=== PATIENT | female | born 1955 | race Asian ===

== ENCOUNTER → 2017-05-31 | Outpatient (CLI) | payer OTHER | LOC: BMCIMAGING 09:49 | PROVIDERS: ATTEND Family Medicine | DX: Z12.39 Encounter for other screening for malignant neoplasm of breast (principal); N63.11 Unspecified lump in the right breast, upper outer quadrant | CPT/HCPCS: G0204 ==

== ENCOUNTER → 2017-06-07 | Outpatient (CLI) | payer OTHER ==
[~2017-06-07] MED LIST: BUPIVACAINE 0.5% 10 ML SDV ONE; LIDOCAINE 1% 300 MG/30 ML SDV ONE; THROMBIN (BOVINE) 5,000 UNIT VIAL TP ONE
[2017-06-15 14:57] LABS: FIXED IN 10%FORM 6-72HR Yes; FIXED IN 10%FORM W/IN 1 HR Yes
== END ==
LOC: FIMAGING 07:12
PROVIDERS: ATTEND Family Medicine
PROC: 0HBT3ZX Excision of Right Breast, Percutaneous Approach, Diagnostic (ICD-10-PCS; principal; 2017-06-07)
DX: C50.411 Malignant neoplasm of upper-outer quadrant of right female breast (principal)
CPT/HCPCS: G0206

== ENCOUNTER 2017-07-06 07:10 | Day surgery (SDC) | payer OTHER ==
--- NOTE | 2017-06-30 10:41 | CPEKG ---
Heart Rate: 68 RR Interval: 882 P-R Interval: 204 QRSD Interval: 90 QT Interval: 388 QTC Interval: 413 P [place]: 43 QRS [place]: 50 T Wave [place]: 19 EKG Severity - NORMAL ECG - EKG Impression: SINUS RHYTHM Electronically Signed By: Yenifer Lee 30-Jun-2017 11:13:32
[2017-07-06] MEDS ORDERED: LR 1,000 ML IV ONE (07:28)
[2017-07-06] MEDS ORDERED: ceFAZolin 2 GM/SWFI 2 GM/20 ML SYR IVP ONE (07:33)
[2017-07-06 07:42] VITALS: PULSE 61
[2017-07-06] MEDS ORDERED: LIDOCAINE 1% 2 ML INJ ONE (07:56)
[2017-07-06] MEDS ORDERED: BUPIVACAINE/EPI 0.5% 30 ML SDV ONE (08:59)
[2017-07-06] MEDS ORDERED: LIDOCAINE 1% 300 MG/30 ML SDV ONE (08:59)
--- NOTE | 2017-07-06 09:19 | PDHPUP ---
History & Physical Update H&P update statement: This history and physical update is based on an assessment of the patient which was completed after admission or registration (within 24 hours), but prior to the surgery/procedure. H&P update: H&P reviewed & patient examined, no change in patient's condition since H&P completed
[2017-07-06] MEDS ORDERED: MIDAZOLAM 2 MG/2 ML VIAL ONE (09:30)
[2017-07-06] MEDS ORDERED: MIDAZOLAM 2 MG/2 ML VIAL IVP ONE (09:31)
--- NOTE | 2017-07-06 09:32 | PDANEPAE ---
ANE History of Present Illness breast mass excision ANE Past Medical History - Cardiovascular History Hx Hypertension: No Hx Arrhythmias: No Hx Chest Pain: No Hx Coronary Artery / Peripheral Vascular Disease: No Hx CHF / Valvular Disease: No Hx Palpitations: No - Pulmonary History Hx COPD: No Hx Asthma/Reactive Airway Disease: No Hx Recent Upper Respiratory Infection: No Hx Oxygen in Use at Home: No Hx Sleep Apnea: No Sleep Apnea Screening Result - Last Documented: Negative - Neurologic History Hx Cerebrovascular Accident: No Hx Seizures: No Hx Dementia: No - Endocrine History Hx Diabetes: No - Renal History Hx Renal Disorders: No - Liver History Hx Hepatic Disorders: No - Neurological & Psychiatric Hx Hx Neurological and Psychiatric Disorders: No - Cancer History Hx Cancer: Yes Cancer History Comment: breast ca currently - Congenital Disorder History Hx Congenital Disorders: No - GI History Hx Gastrointestinal Disorders: No - Other Health History Other Health History: lower denture - Chronic Pain History Chronic Pain: No - Surgical History Prior Surgeries: hysterectomy. back surgery ANE Review of Systems Review of Systems: - Exercise capacity METS (RN): 3 METS ANE Patient History - Allergies Allergies/Adverse Reactions: No Known Allergies Allergy (Verified 06/25/17 11:45) - Home Medications Home Medications: NK [No Known Home Meds] 12/27/14 [Last Taken Unknown] - NPO status NPO Since - Liquids (Date): 07/05/17 NPO Since - Liquids (Time): 18:00 NPO Since - Solids (Date): 07/05/17 NPO Since - Solids (Time): 18:00 - Anes Hx Anes Hx: post operative nausea and vomiting - Smoking Hx Smoking Status: Never smoked - Family Anes Hx Family Hx Anesthesia Complications: none ANE Labs/Vital Signs - Vital Signs Blood Pressure: 128/80 Heart Rate: 61 Respiratory Rate: 16 O2 Sat (%): 94 Height: 152.4 cm Weight: 61.235 kg ANE Physical Exam - Airway Mallampati Score: Class 2 Mouth exam: normal dental/mouth exam, dentures - Pulmonary Pulmonary: no respiratory distress - Cardiovascular Cardiovascular: regular rate and rhythym - ASA Status ASA Status: II ANE Anesthesia Plan Anesthesia Plan: GA with mask, MAC
[2017-07-06] MEDS ORDERED: LIDOCAINE 2% 5 ML SDV ONE (09:36)
[2017-07-06] MEDS ORDERED: PROPOFOL/EMULSION 500 MG/50 ML BOTTLE IV ONE ×2 (09:36→10:10)
[2017-07-06] MEDS ORDERED: ONDANSETRON 4 MG/2 ML VIAL ONE (09:36)
[2017-07-06] MEDS ORDERED: DEXAMETHASONE 4 MG/ML VIAL ONE (09:36)
[2017-07-06] MEDS ORDERED: fentaNYL 100 MCG/2 ML INJ ONE ×2 (09:36→11:59)
[2017-07-06] MEDS ORDERED: LR 500 ML IV PRN (11:00)
[2017-07-06] MEDS ORDERED: HYDROmorphONE/DILAUDID 1 MG/ML INJ IVP PRN (11:00)
[2017-07-06] MEDS ORDERED: HYDROCODONE/APAP 5/325 TAB PO PRN (11:00)
[2017-07-06] MEDS ORDERED: ONDANSETRON 4 MG/2 ML VIAL IVP PRN (11:00)
[2017-07-06] MEDS ORDERED: NALOXONE HCL 0.4 MG/ML INJ IVP PRN (11:00)
[2017-07-06] MEDS ORDERED: ALBUTEROL 3 ML DEYVIAL IH PRN (11:00)
--- NOTE | 2017-07-06 11:37 | POSTOPPROG ---
Post Op Note Date of Operation: 07/06/17 Surgeon: Fabian Suarez Anesthesiologist: Dr. Woodson Anesthesia: IV Sedation Pre-op Diagnosis: R breast CA Post-op Diagnosis: same Procedure: R SLN bx, R lumpectomy Inf/Abcess present in the surg proc area at time of surgery?: No EBL: Minimal
--- NOTE | 2017-07-06 11:38 | POSTANESTH ---
Post Anesthetic Evaluation Cardiovascular Status: Normal, Stable Respiratory Status: Normal, Stable Level of Consciousness/Mental Status: Can Participate in Eval Pain Control: Adequate, Prn Tx Ordered Nausea/Vomiting Control: Adequate, Prn Tx Ordered Complications Possibly Related to Anesthesia: None Noted
[2017-07-06 11:55] VITALS: TEMP 98.2
[2017-07-06] MEDS: fentaNYL 100 MCG/2 ML INJ IVP PRN ×2 (12:02→12:31)
[2017-07-06 13:50] VITALS: BP 110/73; O2SAT 91
[2017-07-06 14:14] VITALS: RESP 16
--- NOTE | 2017-07-06 20:18 | GOP ---
[f rep st] OPERATIVE REPORT DATE OF OPERATION: SURGEON: Rakesh Suarez MD ANESTHESIA: Monitored anesthetic care per . PREOPERATIVE DIAGNOSIS: Right-sided breast cancer. POSTOPERATIVE DIAGNOSIS: Right-sided breast cancer. PROCEDURE PERFORMED: 1. Right sentinel lymph node biopsy. 2. Right breast lumpectomy. FINDINGS: The patient had 2 sentinel nodes, both of which were benign. Two separate palpable masses were sent in the same specimen in the lumpectomy site. ESTIMATED BLOOD LOSS: 20 cc. INDICATIONS: This is a 61-year-old female with a history of right-sided breast cancer and palpable l ump in the upper outer quadrant. Risks and benefits of the procedure were discussed with the patient and her family. Their questions were answered, and they wished to proceed. DESCRIPTION OF PROCEDURE: Patient was in supine position. After induction of adequate IV sedation, the patient was prepped and draped in the standard surgical fashion. The sentinel node was addressed first. 1% lidocaine and 0.5% Marcaine were injected throughout the right axilla for local anesthesi a. An incision was made transversely using a #15 blade and carried down through the subcutaneous tis herman with Bovie cautery and blunt dissection. Once the axillary fat was opened, the Neoprobe was used to assess the lymph nodes therein. Two nodes appeared positive on the Neoprobe. These were dissect ed using blunt dissection. Clips were then applied to the possible lymphatic areas, and specimens we re removed separately. They were sent for frozen section. Frozen section on each of these nodes ret urned negative for malignancy. The area was thoroughly irrigated and aspirated. Good hemostasis was noted. The area was again chec ked with a Neoprobe, and no lesions were identified. The subcutaneous tissue was then approximated w ith 3-0 Vicryl in an interrupted fashion. The skin was closed with 4-0 Monocryl in a subcuticular st itch. Wound was sterilely dressed and then was segregated from the remainder of the operation. The right lumpectomy was addressed next. The area of the palpable lump was anesthetized with 1% lido storm and 0.5% Marcaine. An oblique incision was made with a #15 blade, carried down to the subcutan eous tissue with sharp and blunt dissection. Sharp dissection was then used to dissect both masses w hich were in close proximity in the right upper outer quadrant. A good margin of normal-appearing ti ssue was left around each. The site was removed and carefully marked using sutures to klaus the super ior, lateral and posterior segments. It was sent for permanent section. The area was thoroughly palp ated. No other lesions were identified. Hemostasis was achieved with cautery. It was then irrigate d and aspirated. The subcutaneous tissue was approximated 3-0 Vicryl in an interrupted fashion. Ski n was closed with 4-0 Monocryl in a subcuticular stitch. Wound was sterilely dressed, and the patien t was taken to the PACU in stable condition. COMPLICATIONS: None. DRAINS: None. /[id number]/MODL
== END 2017-07-06 14:50 | disposition home or self-care (01) ==
LOC: FSGY 07:10
PROVIDERS: ATTEND Surgery
PROC: 0HBT0ZZ Excision of Right Breast, Open Approach (ICD-10-PCS; principal; 2017-07-06 09:45)
PROC: 07B50ZX Excision of Right Axillary Lymphatic, Open Approach, Diagnostic (ICD-10-PCS; principal; 2017-07-06 09:45)
PROC: 3E0W3HZ Introduction of Radioactive Substance into Lymphatics, Percutaneous Approach (ICD-10-PCS; 2017-07-06 09:45)
DX: C50.411 Malignant neoplasm of upper-outer quadrant of right female breast (principal); D36.0 Benign neoplasm of lymph nodes; Z17.0 Estrogen receptor positive status [ER+]; Z80.3 Family history of malignant neoplasm of breast
CPT/HCPCS: 19301; 38525; 38792; 93005; A9520; J0690; J1100; J2250; J2405; J2704; J3010

== ENCOUNTER → 2017-07-09 | Outpatient (CLI) | payer OTHER | LOC: BMCIMAGING 09:52 | PROVIDERS: ATTEND Internal Medicine Hematology & Oncology | DX: Z13.820 Encounter for screening for osteoporosis (principal); M85.89 Other specified disorders of bone density and structure, multiple sites ==

== ENCOUNTER → 2018-01-05 | Outpatient (CLI) | payer OTHER | LOC: BMCIMAGING 16:08 | PROVIDERS: ATTEND Family Medicine | DX: M89.341 Hypertrophy of bone, right hand (principal) ==

== ENCOUNTER → 2018-10-27 | Outpatient (CLI) | payer OTHER | LOC: BMCIMAGING 15:37 | PROVIDERS: ATTEND Family Medicine | DX: M79.89 Other specified soft tissue disorders (principal) ==